=== PATIENT | male | born 1970 | race Caucasian/White ===

== ENCOUNTER 2017-12-15 15:56 | Emergency (ER) | payer OTHER ==
[~2017-12-15] VITALS: Ht 190.5 cm; Wt 147.9 kg
--- NOTE | ~2017-12-15 | EKG ---
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: Mary LOWRY : 1970 Requested By: Asia Lyman Order Number: [id number] MD: Orlando Mlalory Measurements Intervals [place] Rate: 92 P: 45 VA: 142 QRS: -27 QRSD: 92 T: 44 QT: 355 QTc: 440 Interpretive Statements Sinus rhythm Borderline left axis deviation Borderline low voltage, extremity leads No previous ECG available for comparison Electronically Signed On 12-15-2017 17:12:54 CDT by Orlando Mallory [email or web address] <ELECTRONICALLY SIGNED> By: Orlando Mallory MD, [facility] 12/15/17 1712 1604 1604 Orlando Mallory MD, FACC /EPI
[2017-12-15] MEDS ORDERED: CARTIA XT240 M1 PO (16:29)
[2017-12-15] MEDS ORDERED: NEXIUM40 MG PO (16:34)
[2017-12-15] MEDS ORDERED: BENADRYL25 MG PO (16:35)
[2017-12-15 16:47] LABS: ABSOLUTE NEUTROPHILS 6.3 thou/uL (1.4-8.2); BASOPHILS 0.5 % (0.0-2.0); EOSINOPHILS 1.4 % (0.0-3.0); HEMATOCRIT 47.6 % (42.0-52.0); HEMOGLOBIN 16.7 gm/dL (14.0-18.0); LYMPHOCYTES 22.8 % (24.0-44.0); MCH 30.7 pg (26.0-34.0); MCHC 35.1 g/dL (28.0-37.0); MCV 87.4 fL (80.0-100.0); MONOCYTES 6.1 % (1.0-8.0); PLATELET COUNT 199 thou/uL (150-400); POLYS 69.2 % (36.0-66.0); RBC 5.45 mil/uL (4.50-6.00); RDW 13.1 % (10.5-14.5); WBC 9.1 thou/uL (4.0-11.0)
[2017-12-15 16:55] LABS: ANION GAP 9 mmol/L (7-16); BUN 9 mg/dL (7-18); CALCIUM 8.7 mg/dL (8.5-10.1); CHLORIDE 104 mmol/L (98-107); CO2 25 mmol/L (21-32); CREATININE 0.9 mg/dL (0.7-1.3); GLUCOSE 99 mg/dL (74-106); POTASSIUM 4.1 mmol/L (3.5-5.1); SODIUM 138 mmol/L (136-145)
[2017-12-15 17:04] LABS: TROPONIN-I <0.06 ng/mL (<0.06)
[2017-12-15 17:38] VITALS: BP 140/84
== END 2017-12-15 17:40 | disposition home or self-care (01) ==
LOC: ER 15:56
PROVIDERS: Emergency Medicine
DX: R00.2 Palpitations (principal); R07.89 Other chest pain; R42 Dizziness and giddiness; R20.0 Anesthesia of skin; J45.909 Unspecified asthma, uncomplicated; F17.210 Nicotine dependence, cigarettes, uncomplicated; Z88.0 Allergy status to penicillin; Z88.8 Allergy status to other drugs, medicaments and biological substances